=== PATIENT | male | born 1990 | race Caucasian/White ===

== ENCOUNTER 2018-07-07 22:29 | Emergency (ER) | payer SELFPAY ==
[2018-07-07] MEDS ORDERED: Metoclopramide 10 MG/2 ML SDV IVPUSH ONE (22:37)
[2018-07-07] MEDS ORDERED: HYDROmorphone 1 MG/ML Syringe IVPUSH ONE (22:37)
[2018-07-07] MEDS ORDERED: Diphtheria,Pertussis(Acell),Tetanus Vaccine 0.5 ML Syringe IM ONE (22:43)
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
[2018-07-07] MEDS ORDERED: Sodium Chloride 0.9% 1,000 ML IV SCH (22:45)
[2018-07-07] MEDS ORDERED: Lidocaine 1% 10 ML MDV INJECT ONE (23:27)
[2018-07-07] MEDS ORDERED: ceFAZolin 1 GM in Premix Bag 1 BAG IV ONE (23:27)
[2018-07-07] MEDS ORDERED: Lidocaine 2% 20 ML MDV ONE (23:28)
[2018-07-07] MEDS ORDERED: Lidocaine 1% 50 ML MDV ONE (23:28)
[2018-07-07] MEDS ORDERED: HYDROmorphone 1 MG/ML Syringe ONE (23:53)
[2018-07-08] MEDS ORDERED: HYDROmorphone 1 MG/ML Syringe IVPUSH ONE (00:07)
--- NOTE | 2018-07-08 06:21 | CR ---
Left tibia and fibula: Single view of the left tibia and fibula was obtained. Femoral shaft fracture again seen. Tibia and fibula appear to be intact without discrete fracture. Impression: 1. Femoral shaft fracture. Nothing acute definitely appreciated within the tibia or fibula on one view study. Diagnostic code #3
--- NOTE | 2018-07-08 06:21 | CT ---
CT facial bones Technique: Multiple axial sections through the facial bones were obtained. Intravenous contrast was not utilized. Reconstructed coronal and sagittal images were reviewed. Comparison: No previous facial bone study. Findings: Soft tissue swelling and soft tissue injury is seen. Small superficial radiopacities are seen. Findings are noted within the left side of the scalp. Paranasal sinuses show minimal mucosal thickening within the maxillary sinuses which is incidental. Right and left globes are symmetric. No facial bone fracture is identified. Impression: 1. Soft tissue injury within the left scalp. 2. Minimal sinus findings which are incidental. 3. No acute bony abnormality is seen. Diagnostic code #2 I agree with preliminary report from [facility], finalized on 07/08/18, 12:37 AM Central Time
--- NOTE | 2018-07-08 06:22 | CR ---
Left femur: Two views of the left femur were obtained. Comparison: No prior femur exam. Displaced and foreshortened fracture is noted within the mid one third diaphysis of the femur. There is displacement by over a shaft width. Soft tissue swelling is noted. Radiopacities are seen overlying the thigh. Impression: 1. Left femur fracture as noted above. Diagnostic code #5
--- NOTE | 2018-07-08 06:42 | CT ---
CT chest Technique: Multiple axial sections through the chest were obtained. Intravenous contrast was utilized. Comparison: No prior chest CT. Mediastinum and hilar regions are unremarkable. A hazy density noted within the superior mediastinum most likely representing residual thymic tissue. No pericardial fluid is seen. Artifact noted from the patient's arms being along his side. Lungs shows no acute parenchymal change. No pleural effusions or pneumothorax is seen. Bone window settings were reviewed which show no discrete rib abnormality. Reconstructed sagittal images of the sternum appear intact. Impression: 1. No acute abnormality is appreciated on CT study of the chest. Diagnostic code #1 I agree with preliminary report from [facility], finalized on 07/08/18, 12:[address] abdomen and pelvis Technique: Multiple axial sections were obtained from above the dome of the diaphragm inferiorly through the pubic symphysis. Intravenous contrast was utilized. No oral contrast was given. Delayed images were also obtained through the abdomen and pelvis. Comparison: No prior CT abdomen or pelvis exam. Findings: Artifact noted from the patient's arms. Liver shows no discrete abnormality. Spleen appears intact. Adrenal glands show no nodule. Pancreas appears within normal limits. Gallbladder contains no calcified gallstones. Kidneys show symmetric contrast enhancement. Small nonobstructing calculi are seen within both kidneys. Delayed images show contrast within the collecting system of both kidneys with contrast seen within the ureters and bladder. No contrast extravasation is seen. Aorta shows no aneurysm. No retroperitoneal adenopathy or mesenteric abnormalities are seen. No pelvic mass or adenopathy is seen. No free fluid or inflammatory change is seen. Appendix is seen which is normal in size. Bone window settings were reviewed which show no discrete pelvic fracture. Right and left hips appear to be intact. Mild scoliosis is seen. Impression: 1. Nothing acute is identified on CT study of the abdomen and pelvis. 2. Small nonobstructing calculi noted within both kidneys. Diagnostic code #2 I agree with preliminary report from [facility], finalized on 07/08/18, 12:51 AM Central Time
--- NOTE | 2018-07-08 06:42 | CT ---
CT cervical spine Technique: Multiple axial sections were obtained from above C1 inferiorly to the bottom of T3. Reconstructed sagittal and coronal images were reviewed. Comparison: No prior cervical spine imaging is available. Findings: Vertebral body heights and disc spaces are maintained. Vertebral bodies and posterior arches are intact with no fracture being seen. No abnormal subluxation is seen. No central canal stenosis or neural foraminal stenosis is seen. Impression: 1. Nothing acute is identified on CT study of the cervical spine. Diagnostic code #1 I agree with preliminary report from [facility], finalized on 07/08/18, 12:36 AM Central Time
--- NOTE | 2018-07-08 06:42 | CT ---
CT lumbar spine Technique: Multiple axial sections through the lumbar spine were obtained. Reconstructed coronal and sagittal images were reviewed. Comparison: No previous lumbar spine imaging is available. Findings: Vertebral body heights and disc spaces are maintained. Vertebral body showed no fracture. No bony central or bony neural foraminal stenosis is seen. Incidental scoliosis is present. Impression: 1. Scoliosis. Nothing acute is seen on CT study of the lumbar spine. Diagnostic code #2 I agree with preliminary report from [facility], finalized on 07/08/18, 12:58 AM Central Time
--- NOTE | 2018-07-08 06:42 | CT ---
Head CT Technique: Multiple axial sections through the brain were obtained. Intravenous contrast was not utilized. Findings: Soft tissue injury and swelling is seen within the left side of the scalp. Small superficial radiopacities are seen. Ventricles along with basal cisterns and sulci over the convexities are within normal limits for the patient's age. No evidence of intracranial hemorrhage. No midline shift or mass effect is seen. No discrete calvarial abnormality is seen. Impression: 1. Soft tissue swelling and soft tissue injury with the left side of the scalp with superficial radiopacities compatible with foreign bodies. 2. No acute intracranial abnormality is seen. No skull fracture is seen. Diagnostic code #2 I agree with preliminary report from [facility], finalized on 07/08/18, 12:18 AM Central Time
--- NOTE | 2018-07-08 06:42 | CT ---
CT thoracic spine Technique: Multiple axial sections were obtained through the thoracic spine. Reconstructed coronal and sagittal images were reviewed. Comparison: No previous thoracic spine imaging. Findings: Scoliosis is noted. Vertebral body heights and disc spaces are maintained. Vertebral bodies and posterior arches are intact with no fracture being seen. No abnormal subluxation is seen on the reconstructed sagittal images. No gross disc herniation is seen. Impression: 1. Scoliosis. Nothing acute is appreciated on CT study of the thoracic spine. Diagnostic code #2 I agree with preliminary report from [facility], finalized on 07/08/18, 12:55 AM Central Time
== END 2018-07-08 00:05 | disposition home or self-care (01) ==
LOC: JD.ED 22:29
DX: S72.322A Displaced transverse fracture of shaft of left femur, initial encounter for closed fracture (principal); S01.02XA Laceration with foreign body of scalp, initial encounter; S80.02XA Contusion of left knee, initial encounter; S80.12XA Contusion of left lower leg, initial encounter; V89.2XXA Person injured in unspecified motor-vehicle accident, traffic, initial encounter
CPT/HCPCS: 36415; 70450; 70486; 71260; 72125; 72128; 72131; 73552; 73590; 74177; 80053; 82150; 85007; 85027; 85610; 85730; 86850; 86900; 86901; 90471; 90700; 93005; 96361; 96374; 96375; 96376; 99285; G0390; G0480; J0690; J1170; J2765; J7040; 93010

== ENCOUNTER 2020-08-31 09:16 | Day surgery (SDC) | payer BC ==
[~2020-08-31 09:16] MED LIST: Albuterol/Ipratropium 3.0-0.5 MG/3 ML Neb Soln NEB SCH; Lactated Ringers 1,000 ML IV SCH; Lidocaine 1%/Sod Bicarbonate in NS 8.4% 1 ML Syringe IDERM PRN; Sodium Chloride 0.9% 10 ML Syringe FLUSH PRN
[2020-08-31] MEDS ORDERED: Albuterol/Ipratropium 3.0-0.5 MG/3 ML Neb Soln NEB SCH (09:30)
[2020-08-31] MEDS ORDERED: Sodium Chloride 0.9% 10 ML Syringe FLUSH PRN (09:32)
[2020-08-31] MEDS ORDERED: Lidocaine 1%/Sod Bicarbonate in NS 8.4% 1 ML Syringe IDERM PRN (09:32)
[2020-08-31] MEDS ORDERED: Bupivacaine 0.5%/EPINEPHrine 1:200,000 50 ML MDV ONE (09:41)
[2020-08-31] MEDS ORDERED: Lactated Ringers 1,000 ML IV SCH (09:45)
--- NOTE | 2020-08-31 09:51 | PCM.PREANE ---
Preanesthetic Assessment - Anesthesia/Transfusion/Family Hx Anesthesia History: Prior Anesthesia Without Reaction Family History of Anesthesia Reaction: No Transfusion History: No Prior Transfusion(s) - Review of Systems General: No Symptoms Pulmonary: No Symptoms Cardiovascular: No Symptoms Gastrointestinal: No Symptoms Neurological: No Symptoms Other: Reports: None - Physical Assessment NPO Status Date: 08/31/19 NPO Status Time: 23:00 Vital Signs: Last Vital Signs Temp Pulse Resp BP Pulse Ox 97 08/31/20 09:36 ASA Class: 2 Mental Status: Alert & Oriented x3 Airway Class: Mallampati = 2 Dentition: Reports: Normal Dentition Thyro-Mental Finger Breadths: 3 Mouth Opening Finger Breadths: 3 ROM/Head Extension: Full Lungs: Clear to Auscultation, Normal Respiratory Effort Cardiovascular: Regular Rate, Regular Rhythm - Lab Values: Laboratory Last Values WBC 9.64 K/mm3 (4.23-9.07) H 08/30/20 09:30 RBC 5.77 M/mm3 (4.63-6.08) 08/30/20 09:30 Hgb 17.6 gm/dl (13.7-17.5) H 08/30/20 09:30 Hct 51.5 % (40.1-51.0) H 08/30/20 09:30 MCV 89.3 fl (79.0-92.2) 08/30/20 09:30 MCH 30.5 pg (25.7-32.2) 08/30/20 09:30 MCHC 34.2 g/dl (32.2-35.5) 08/30/20 09:30 RDW Std Deviation 39.0 fL (35.1-43.9) 08/30/20 09:30 Plt Count 322 K/mm3 (163-337) 08/30/20 09:30 MPV 10.2 fl (9.4-12.3) 08/30/20 09:30 Neut % (Auto) 56.8 % (34.0-67.9) 08/30/20 09:30 Lymph % (Auto) 30.4 % (21.8-53.1) 08/30/20 09:30 [place] % (Auto) 9.9 % (5.3-12.2) 08/30/20 09:30 Eos % (Auto) 2.0 (0.8-7.0) 08/30/20 09:30 Baso % (Auto) 0.6 % (0.1-1.2) 08/30/20 09:30 Neut # (Auto) 5.48 K/mm3 (1.78-5.38) H 08/30/20 09:30 Lymph # (Auto) 2.93 K/mm3 (1.32-3.57) 08/30/20 09:30 [place] # (Auto) 0.95 K/mm3 (0.30-0.82) H 08/30/20 09:30 Eos # (Auto) 0.19 K/mm3 (0.04-0.54) 08/30/20 09:30 Baso # (Auto) 0.06 K/mm3 (0.01-0.08) 08/30/20 09:30 - Allergies Allergies/Adverse Reactions: Allergies Allergy/AdvReac Type Severity Reaction Status Date / Time No Known Allergies Allergy Verified 08/30/20 16:12 - Acknowledgements Anesthesia Type Planned: MAC Pt an Appropriate Candidate for the Planned Anesthesia: Yes Alternatives and Risks of Anesthesia Discussed w Pt/Guardian: Yes Pt/Guardian Understands and Agrees with Anesthesia Plan: Yes PreAnesthesia Questionnaire - Past Health History Medical/Surgical History: Denies Medical/Surgical History HEENT History: Reports: Impaired Vision Cardiovascular History: Reports: None Respiratory History: Reports: None Gastrointestinal History: Reports: None Genitourinary History: Reports: Renal Calculus OFFAL ROLLER History: Reports: None Musculoskeletal History: Reports: None Neurological History: Reports: None Psychiatric History: Reports: None Endocrine/Metabolic History: Reports: None Hematologic History: Reports: None Immunologic History: Reports: None Oncologic (Cancer) History: Reports: None Dermatologic History: Reports: None - Infectious Disease History Infectious Disease History: Reports: Novel Coronavirus - Past Surgical History Head Surgeries/Procedures: Reports: None HEENT Surgical History: Reports: Oral Surgery Cardiovascular Surgical History: Reports: None Respiratory Surgical History: Reports: None GI Surgical History: Reports: None Female Surgical History: Reports: None Male Surgical History: Reports: None Endocrine Surgical History: Reports: None Neurological Surgical History: Reports: None Musculoskeletal Surgical History: Reports: ORIF Other Musculoskeletal Surgeries/Procedures:: femur fracture with repair Oncologic Surgical History: Reports: None Dermatological Surgical History: Reports: None - SUBSTANCE USE Tobacco Use Status *Q: Former Tobacco User Recreational Drug Use History: No - HOME MEDS Home Medications: Home Meds . [No Known Home Meds] 07/08/18 [History] - CURRENT (IN HOUSE) MEDS Current Meds: Current Medications Albuterol/Ipratropium (Albuterol/Ipratropium 3.0-0.5 Mg/3 Ml Neb Soln) 3 ml NEB ONETIME SHERI Stop: 08/31/20 12:00 Last Admin: 08/31/20 09:35 Dose: 3 ml Documented by: Lactated Ringer's (Ringers, Lactated) 1,000 mls @ 125 mls/hr IV ASDIRECTED SHERI Stop: 08/31/20 23:00 Lidocaine/Sodium Bicarbonate (Lidocaine 1%/Sod Bicarbonate In Ns 8.4% 1 Ml Syringe) 0.25 ml IDERM ONETIME PRN PRN Reason: Prior to IV Start Stop: 08/31/20 18:00 Sodium Chloride (Sodium Chloride 0.9% 10 Ml Syringe) 10 ml FLUSH ASDIRECTED PRN PRN Reason: Keep Vein Open Stop: 08/31/20 18:00 Discontinued Medications Albuterol/Ipratropium (Albuterol/Ipratropium 3.0-0.5 Mg/3 Ml Neb Soln) 3 ml NEB ONETIME SHERI Stop: 08/30/20 18:00 Bupivacaine HCl/Epinephrine Bitart (Bupivacaine 0.5%/Epinephrine 1:200,000 50 Ml Mdv) Confirm Administered Dose 50 ml .ROUTE .STK-MED ONE Stop: 08/31/20 09:42 Lactated Ringer's (Ringers, Lactated) 1,000 mls @ 125 mls/hr IV ASDIRECTED SHERI Stop: 08/17/20 23:00 Lactated Ringer's (Ringers, Lactated) 1,000 mls @ 125 mls/hr IV ASDIRECTED SHERI Stop: 08/30/20 23:00 Lidocaine/Sodium Bicarbonate (Lidocaine 1%/Sod Bicarbonate In Ns 8.4% 1 Ml Syringe) 0.25 ml IDERM ONETIME PRN PRN Reason: Prior to IV Start Stop: 08/17/20 18:00 Lidocaine/Sodium Bicarbonate (Lidocaine 1%/Sod Bicarbonate In Ns 8.4% 1 Ml Syringe) 0.25 ml IDERM ONETIME PRN PRN Reason: Prior to IV Start Stop: 08/30/20 18:00 Sodium Chloride (Sodium Chloride 0.9% 10 Ml Syringe) 10 ml FLUSH ASDIRECTED PRN PRN Reason: Keep Vein Open Stop: 08/17/20 18:00 Sodium Chloride (Sodium Chloride 0.9% 10 Ml Syringe) 10 ml FLUSH ASDIRECTED PRN PRN Reason: Keep Vein Open Stop: 08/30/20 18:00
[2020-08-31] MEDS ORDERED: ceFAZolin 1 GM Vial ONE (09:54)
[2020-08-31] MEDS ORDERED: Rocuronium 50 MG/5 ML Vial ONE (09:55)
[2020-08-31] MEDS ORDERED: Lidocaine 1% 4 ML ONE (09:55)
[2020-08-31] MEDS ORDERED: Propofol 200 MG/20 ML SDV ONE (09:55)
[2020-08-31] MEDS ORDERED: fentaNYL 250 MCG/5 ML SDV ONE (09:56)
[2020-08-31] MEDS ORDERED: Midazolam 1 MG/ML 2 ML SDV ONE (09:56)
[2020-08-31] MEDS ORDERED: Lactated Ringers 1,000 ML ONE (12:18)
[2020-08-31] MEDS ORDERED: HYDROmorphone 0.5 MG/0.5 ML Syringe ONE ×2 (12:38→12:51)
[2020-08-31] MEDS ORDERED: fentaNYL 100 MCG/2 ML SDV ONE ×2 (12:45→13:23)
[2020-08-31] MEDS ORDERED: Ketorolac 30 MG/ML SDV ONE (12:54)
[2020-08-31] MEDS ORDERED: Ondansetron 4 MG/2 ML SDV ONE (12:54)
--- NOTE | 2020-08-31 13:34 | PCM.POSTAN ---
POST ANESTHESIA ASSESSMENT - MENTAL STATUS Mental Status: Alert, Oriented - VITAL SIGNS Vital Signs: Last Vital Signs Temp 36.6 C 08/31/20 13:25 Pulse 101 H 08/31/20 13:25 Resp 14 08/31/20 13:25 BP 167/98 H 08/31/20 13:25 Pulse Ox 94 L 08/31/20 13:25 - RESPIRATORY Respiratory Status: Respiratory Rate WNL, Airway Patent, O2 Saturation Stable - CARDIOVASCULAR CV Status: Pulse Rate WNL, Blood Pressure Stable - GASTROINTESTINAL GI Status: No Symptoms - PAIN Pain Score: 6 (fentanyl give prior to transfer to PACU) - POST OP HYDRATION Hydration Status: Adequate & Stable
--- NOTE | 2020-08-31 13:37 | PCM.PRNOTE ---
- Free Text/Narrative Note: Date: 08/31/2020 Operation: laparoscopic cholecystectomy Indication: symptomatic cholelithiasis with no tracer in gallbladder on prior HIDA scan Surgeon: Adan Schaefer MD Findings: mild chronic inflammatory changes. Critical view of safety obtained. Detailed Report: The patient was taken to the operating room and placed in supine position. Timeout was performed and general endotracheal anesthesia was initiated. Hair was clipped and the abdomen was prepped and draped in usual sterile fashion. A Veress needle was placed in the left upper quadrant to establish pneumoperitoneum. Once the pressure reached 15 mmHg, air was aspirated just inferior to the umbilicus with needle and syringe. A 5 mm bladed trocar was placed at this site. The laparoscope was inserted into the abdomen and contents were inspected. There was no apparent injury from Veress needle placement, and the needle was removed. Additional ports were placed under laparoscopic visualization. 2 additional 5 mm ports were placed at the right upper quadrant, and a 12 mm bladed trocar was placed the subxiphoid region. The fundus of the gallbladder was grasped and retracted cephalad. The infundibulum was retracted laterally and dissection commenced. The visceral peritoneum of the gallbladder was dissected off the infundibulum. Cystic structures were carefully skeletonized. The cystic duct and cystic artery were cleared from surrounding tissue and a critical view of safety was obtained. Hemoclips were placed on the cystic duct and artery prior to transection. The gallbladder was then dissected from the liver using hook monopolar energy. The specimen was placed in an Endo Catch bag and removed through the subxiphoid site. The dissection field appeared clean and dry. The 12 mm port was removed and fascia was closed at this site using 0 Vicryl on a laparoscopic suture passer. The right lateral ports were removed under visualization and hemostasis was satisfactory. Pneumoperitoneum was released and the final port was removed. All incisions were closed with local skin with absorbable suture. Wounds were dressed with Dermabond. A total of 30 cc 0.5% Marcaine with epinephrine was used for local anesthetic throughout the case.
[2020-08-31] MEDS ORDERED: oxyCODONE 5 MG Tab PO PRN (13:38)
[2020-08-31] MEDS ORDERED: Ondansetron 4 MG/2 ML SDV IVPUSH PRN (13:41)
[2020-08-31] MEDS ORDERED: HYDROmorphone 0.5 MG/0.5 ML Syringe IVPUSH PRN (13:41)
[2020-08-31] MEDS: fentaNYL 100 MCG/2 ML SDV IVPUSH PRN ×2 (13:49→14:08)
--- NOTE | 2020-08-31 13:55 | PCM48HPAN ---
Post Anesthesia Note - EVALUATION WITHIN 48HRS OF ANESTHETIC Vital Signs in Normal Range: Yes Patient Participated in Evaluation: Yes Respiratory Function Stable: Yes Airway Patent: Yes Cardiovascular Function Stable: Yes Hydration Status Stable: Yes Pain Control Satisfactory: Yes Nausea and Vomiting Control Satisfactory: Yes Mental Status Recovered: Yes Vital Signs: Last Vital Signs Temp 36.6 C 08/31/20 13:30 Pulse 89 08/31/20 13:40 Resp 17 08/31/20 13:40 BP 165/92 H 08/31/20 13:40 Pulse Ox 99 08/31/20 13:40
[2020-08-31] MEDS ORDERED: fentaNYL 100 MCG/2 ML SDV IVPUSH PRN (14:15)
== END 2020-08-31 15:10 | disposition home or self-care (01) ==
LOC: JD.SDS 09:16
PROVIDERS: ATTEND Surgery
DX: K80.10 Calculus of gallbladder with chronic cholecystitis without obstruction (principal); Z98.890 Other specified postprocedural states; Z87.891 Personal history of nicotine dependence
CPT/HCPCS: 36415; 47562; 80048; 85025; 94640; A9270; J0690; J1170; J2250; J2405; J2704; J3010; J3490; J7120; 00790; J1885; J7620-GY